=== PATIENT | female | born 1970 | race Caucasian/White ===

== ENCOUNTER 2021-04-13 13:38 | Outpatient (REF) | payer OTHER, SELFPAY ==
--- NOTE | ~2021-04-13 | US_ITS ---
EXAMINATION: US PELVIS CLINICAL INFORMATION: Postmenopausal bleeding. COMPARISON: None. TECHNIQUE: Ultrasound of the pelvis is performed using both transabdominal and transvaginal transducers along with Doppler. Transvaginal imaging is performed due to inadequate visualization transabdominally. FINDINGS: Limited exam due to body habitus. Uterus: The uterus is anteverted and measures 7.8 cm in length, 3.7 seen AP and 5.9 cm in transverse dimension. Uterus is homogeneous in echotexture without focal lesion seen. The double wall endometrial thickness is 0.7 mm. The uterus is smooth in contour and has normal myometrial echogenicity. No visible fibroid. Adnexa: Right ovary measures 30.7 x 2.6 x 2.2 cm. There are small calcifications in the right ovary. Left ovary is not visualized. There is no free fluid in the cul-de-sac. US/US pelvic and transvaginal IMPRESSION: Unremarkable uterus except for thickened endometrium measuring 0.72 cm. Right ovary is unremarkable except for small calcifications seen. The left ovary is not seen.
== END 2021-04-13 13:39 | disposition home or self-care (01) ==
LOC: HO.HMGCX 13:38
PROVIDERS: PCP Internal Medicine; Visit Provider Advanced Practice Midwife
DX: N95.0 Postmenopausal bleeding (principal)
CPT/HCPCS: 76830; 76856

== ENCOUNTER 2021-05-02 14:47 | Outpatient (REF) | payer OTHER, SELFPAY ==
--- NOTE | ~2021-05-02 | MR_ITS ---
EXAMINATION: MR BREAST WITHOUT AND WITH CONTRAST, BILATERAL CLINICAL INFORMATION: 51-year-old for high-risk screening mother and grandmother with breast cancer. Lifetime risk greater than 30%. COMPARISON: Correlation to mammogram of 03/23/2020 TECHNIQUE: Imaging was performed with a dedicated breast coil. Prior to the administration of contrast, bilateral axial T1 and bilateral axial T2 weighted sequences were obtained. After the uneventful administration of?10 mL of Gadavist, dynamic contrast-enhanced VIBRANT series through the breasts in the axial plane were performed. Subtracted images were performed and reviewed. A delayed sagittal sequence through both breasts was acquired. Additionally, CAD post-processing, including maximum intensity projections, 3-D reconstructions and kinetic analysis, were performed an independent workstation and reviewed by the interpreting radiologist is a portion of this exam. FINDINGS: The patient's fibroglandular tissue demonstrates minimal background enhancement. There is mild artifact due to the size of the patient's breasts and position within the breast coil. This is most pronounced in the anterior aspect of the breast. LEFT BREAST: No suspicious masslike or non-masslike enhancement. No abnormal skin thickening or nipple retraction. No abnormal architectural distortion. Review of the T2 weighted images demonstrates no fibrocystic changes or dilated ducts. Review of kinetic images reveals no additional findings. RIGHT BREAST: No suspicious masslike or non-masslike enhancement. No abnormal skin thickening or nipple retraction. No abnormal architectural distortion. Review of the T2 weighted images demonstrates no fibrocystic changes or dilated ducts. Review of kinetic images reveals no additional findings. There is no suspicious internal mammary chain or axillary adenopathy. Limited views of the chest and abdomen are unremarkable. MR/MR breast BI wo/w con IMPRESSION: No MR specific evidence of malignancy. ASSESSMENT: LEFT BREAST: BI-RADS 1-Negative RIGHT BREAST: BI-RADS 1-Negative RECOMMENDATIONS: Routine mammographic imaging as per most recent study and MRI as per high-risk protocol.
== END 2021-05-02 14:48 | disposition home or self-care (01) ==
LOC: HO.MRI 14:47
PROVIDERS: Visit Provider Advanced Practice Midwife
DX: Z13.89 Encounter for screening for other disorder (principal)
CPT/HCPCS: 77049; A9585

== ENCOUNTER → 2021-05-12 08:14 | Outpatient (BNVA) | payer OTHER, SELFPAY | PROVIDERS: PCP Internal Medicine; Visit Provider Obstetrics & Gynecology | DX: N95.0 Postmenopausal bleeding (principal); Z91.89 Other specified personal risk factors, not elsewhere classified | CPT/HCPCS: 99202 ==

== ENCOUNTER 2021-06-03 10:14 | Day surgery (SDC) | payer OTHER, SELFPAY ==
[2021-05-27 13:43] VITALS: BMI 38.4
--- NOTE | 2021-06-03 11:15 | MHC.SHP ---
Pre-Procedural Eval Section A Date of Service: 06/03/21 The patient is an INPATIENT: No Changes since office visit: No Cold of Flu in the past 2 weeks, No New Medical Problems, No Changes in Medication and No Patient answered all questions The History & Physical has been completed within 30 days and I have reviewed it.: Yes Section B Chief Complaint: PMB Allergies: Allergies Allergy/AdvReac Type Severity Reaction Status Date / Time Sulfa (Sulfonamide Allergy Intermediate vomiting/high Verified 05/27/21 11:51 Antibiotics) fever [SULFA (SULFONAMIDE ANTIBIOTICS)] Plan Diagnosis/Plan: Unchanged I have reviewed the history and physical and performed a pertinent physical examination on my patient. No changes have occurred unless specified.
[2021-06-03 11:19] VITALS: BP 107/62; PULSE 64; RESP 16; TEMP 36.6; O2SAT 98
[2021-06-03] MEDS: Lactated Ringers 1,000 ML 100 ML IVCONT (11:29)
--- NOTE | 2021-06-03 12:05 | HO.ANESPROP2 ---
HPI - Anesthesia Eval Consult details Narrative: 51yo female patient for D&C, Hysteroscopy, possible polypectomy, possible myomectomy PMFSH Active Problems Active Problems: All Active Problems (Updated 05/27/21 @ 11:50 by Stephany Peng RN) Postmenopausal bleeding (Acute) At high risk for breast cancer (Acute) Screening for colon cancer (Acute) Increased BMI Patient refuses blood and signed document to that effect but is willing to accept blood if life- threatening Past Medical History Medical History Anxiety Depression Fibromyalgia GERD (gastroesophageal reflux disease) Migraine Smoker Family History Family history of problems with anesthesia: No Surgical History Surgical History (Updated 06/03/21 @ 12:34 by Faith Rhoades MD) History of History of cataract surgery History of esophagogastroduodenoscopy (EGD) Hx of tubal ligation History of Problems with Anesthesia: Yes (Failed epidural, spinal headache. Told had 'high tolerance' during cataract surgery ) Social History Social History (Updated 06/03/21 @ 12:37 by Faith Rhoades MD) Patient Tobacco Use Status: Current everyday Tobacco user Tobacco use type: Cigarette Cigarette Packs Per Day: 0.75 Cigarettes Per Day: 15.0 Years Smoked: 20 Substance Use Type: Marijuana Last Used Substance: Hours (ago) Last Used Substance Other:: Yesterday Advance Directives Information Provided: Yes (informational brochure mailed) Advance Directives on File: No Meds Allergies Allergy/AdvReac Type Severity Reaction Status Date / Time Sulfa (Sulfonamide Allergy Intermediate vomiting/high Verified 05/27/21 11:51 Antibiotics) fever [SULFA (SULFONAMIDE ANTIBIOTICS)] Home Medications Medication Instructions Recorded Confirmed Last Taken Type albuterol sulfate 90 mcg/actuation 2 puff INHALATION Q6H PRN 05/12/21 Unknown History aerosol inhaler (Ventolin HFA) clonazepam 0.5 mg tablet 0.25 mg PO BEDTIME 05/12/21 Unknown History diclofenac sodium 1 % topical gel 2 g TOPICAL QID 05/12/21 Unknown History estradiol 0.05 mg-norethindrone 1 patch TRANSDERMAL 2XW 05/12/21 Unknown History 0.14 mg/24 hr semiwkly transderm patch (CombiPatch) fluticasone propionate 44 1 puff INHALATION BID 05/12/21 Unknown History mcg/actuation HFA aerosol inhaler (Flovent HFA) fluticasone propionate 50 1 spray INTRANASAL DAILY 05/12/21 Unknown History mcg/actuation nasal spray,suspension fremanezumab-vfrm 225 mg/1.5 mL 675 mg SUBCUT [id number] 05/12/21 Unknown History subcutaneous auto-injector (Ajovy) omeprazole 20 mg capsule,delayed 20 mg PO DAILY 05/12/21 Unknown History release prazosin 5 mg capsule 5 mg PO BEDTIME 05/12/21 Unknown History propranolol 120 mg capsule,24 120 mg PO BEDTIME 05/12/21 Unknown History hr,extended release topiramate 100 mg tablet (Topamax) 100 mg PO DAILY 05/12/21 06/03/21 History Exam Exam Date and Time: June 03, 2021 120 Height,Weight and Vital Signs: Height 5 ft 7 in Weight 111.316 kg Last Vital Signs Temp 97.9 F 06/03/21 11:19 Pulse 64 06/03/21 11:19 Resp 16 06/03/21 11:19 BP 107/62 06/03/21 11:19 Pulse Ox 98 06/03/21 11:19 Airway Mallampati Class: II TM Dist: >3cm Neck ROM: Full Loose/Missing/Broken Teeth: Yes (Missing, chipped back) Heart: RRR Lungs: CTAB Assessment and Plan Assessment Anesthesia Assessment: Anesthesia Plan Discussed and Chart Reviewed Final Anesthetic Review Family History of Problems with Anesthesia: No History of Problems with Anesthesia: Yes (Failed epidural, spinal headache. Told had 'high tolerance' during cataract surgery ) NPO: Yes ASA Class: II Final Preanesthetic Review: No Changes in Pt Med Stat, Meds/Allgs Chart Reviewed, Consent Obtained/Reviewed and Anes Risks/Benef Reviewed Patient Risk: Intermediate Procedure Risk: Low Assessment/Block/Sedation in SS: Assess/Block/Sedation-SS Anesthetic Plan Anesthetic Plan: GA Disposition: Standard PACU
--- NOTE | 2021-06-03 12:27 | PC.NURSE ---
patient states she will take blood products if it was to save her life. life or situation witnesse by another rn annetta lu. signed on blood refusal consent as well.
--- NOTE | 2021-06-03 12:56 | PM.OP ---
Brief Operative Note Date of Service: 06/03/21 Pre-op diagnosis: Postmenopausal bleeding Post-op diagnosis: same (Normal uterine cavity /endocervical canal) Procedure: Hysteroscopy D&C, Polypectomy Surgeon: Stanley Lyman MD Anesthesia: MAC Was an Abrasive Coating Machine Operator used for this Procedure?: No Estimated blood loss (mL): 0 Pathology: other (Endometrial Scrapping) Condition: stable Disposition: PACU
--- NOTE | 2021-06-03 12:57 | P.OP_ITS ---
Operative Note Operative Note Date of Service: 06/03/21 Narrative: Preop Diagnosis: Post Menopausal bleeding Operation: Diagnostic Hysteroscopy, Dilataion & Curettage Post Op Diagnosis: Normal endometrial cavity QBL: Minimal Anesthesia: MAC Surgeon: Stanley Lyman MD Delinquent Tax Collection Assistant: None Complication: None Pathology: Endometrial Scrapings Procedure: The patient was put in the dorsal lithotomy position, scrubbed, and draped in the usual manner. A sterile speculum was inserted in the patient's vagina. The anterior lip of the cervix was grasped with a single tooth tenaculum. The cervix was dilated up to 5 mm, then the scope was inserted in the patient's uterus. Inspection revealed Normal endometrial cavity. The Myosure Reach device was used; . At the end of the procedure, all instruments were taken out of the patient uterine and vaginal cavity. The single tooth tenaculum was removed and homeostasis was assured using pressure,. The patient tolerated the procedure well and was transferred to the PACU in a stable condition.
[2021-06-03 13:05] VITALS: BP 101/56; PULSE 72; RESP 16; TEMP 36.4; O2SAT 99
[2021-06-03 13:10] VITALS: BP 104/73; PULSE 68; RESP 18; O2SAT 97
[2021-06-03 13:15] VITALS: BP 111/54; PULSE 65; RESP 18; O2SAT 98
[2021-06-03 13:20] VITALS: BP 104/49; PULSE 77; RESP 18; O2SAT 98
[2021-06-03] MEDS: Acetaminophen 325 MG TABLET 975 MG PO (13:20)
[2021-06-03] MEDS: oxyCODONE HCl Immed Release 5 MG TABLET PO (13:29)
[2021-06-03 13:35] VITALS: BP 117/79; PULSE 67; RESP 18; TEMP 36.4; O2SAT 99
== END 2021-06-03 14:13 | disposition home or self-care (01) ==
PROVIDERS: PCP Internal Medicine; Visit Provider Obstetrics & Gynecology
PROC: 0UDB8ZZ Extraction of Endometrium, Via Natural or Artificial Opening Endoscopic (ICD-10-PCS; CPT 58558; principal; 2021-06-03 11:40)
DX: N95.0 Postmenopausal bleeding (principal); Z91.89 Other specified personal risk factors, not elsewhere classified; F41.8 Other specified anxiety disorders; M79.7 Fibromyalgia; G43.909 Migraine, unspecified, not intractable, without status migrainosus; Z79.899 Other long term (current) drug therapy; Z88.2 Allergy status to sulfonamides; Z98.51 Tubal ligation status; F17.210 Nicotine dependence, cigarettes, uncomplicated
CPT/HCPCS: 58558; 88305; J1100; J2250; J2405; J3010

== ENCOUNTER 2021-06-21 | Outpatient (REF) | payer OTHER, SELFPAY | END 2021-06-21 00:01 | LOC: CF | PROVIDERS: PCP Internal Medicine; Visit Provider Obstetrics & Gynecology | DX: N95.0 Postmenopausal bleeding (principal); R23.2 Flushing | CPT/HCPCS: 99212 ==

== ENCOUNTER 2021-07-26 12:10 | Emergency (ER) | payer OTHER, SELFPAY ==
--- NOTE | ~2021-07-26 | CT_ITS ---
EXAMINATION: CT ABDOMEN AND PELVIS WITHOUT CONTRAST CLINICAL INFORMATION: Bilateral hip pain. COMPARISON: MR abdomen dated from 09/06/[address] abdomen/pelvis dated from 08/28/2017. TECHNIQUE: Multidetector volumetric imaging was performed from the superior aspect of the liver through the pubic symphysis. Sagittal and coronal reformatted images were obtained on the technologist's workstation. This CT examination was performed using dose optimization techniques as appropriate, variously including the following: *Automated exposure control *Adjustment of mA and/or kV according to patient size (this includes techniques or standardized protocols for targeted exams where dose is matched to indication/reason for exam; i.e. extremities or head) *Use of iterative reconstruction technique DLP: 1057 mGy-cm FINDINGS: LUNG BASES: Limited evaluation due to respiratory motion. No focal consolidation or pleural effusion. LIVER, GALLBLADDER, AND BILIARY TREE: Redemonstration of subtle nodularity of the hepatic borders and questionable enlargement of the caudate lobe, raising the possibility of underlying hepatocellular disease. Otherwise, the noncontrast liver is normal in size without focal abnormalities. Hydropic gallbladder without evidence of stones, wall thickening nor pericholecystic inflammatory changes. No biliary ductal dilatation. PANCREAS: Fatty infiltration. No focal abnormalities. The main pancreatic duct is nondilated. SPLEEN: Unremarkable. ADRENAL GLANDS: Unremarkable. KIDNEYS AND URETERS: The kidneys are normal in size, shape, and attenuation. No hydronephrosis, hydroureter, or calculi seen. No perinephric stranding. BLADDER: Unremarkable. GASTROINTESTINAL TRACT: The stomach and the small bowel are nondilated. Normal appendix. No pericolic inflammatory changes or evidence of bowel obstruction. ABDOMINAL WALL: No significant hernia is appreciated. LYMPH NODES: Prominent periportal lymph nodes are stable since 2018. No lymphadenopathy by size criteria. VASCULAR: Unremarkable. PELVIC VISCERA: Unremarkable. OSSEOUS STRUCTURES: Stable compression deformity at L1 since 2018. New compression deformity at L5 and T9. No pelvic fractures. CT/CT abdomen pelvis wo con IMPRESSION: 1. New compression deformities at T9 and L5 since 2018. Correlate for pain/tenderness and history of trauma. 2. Redemonstration of subtle nodularity of the liver contour and questionable enlargement of the caudate lobe, raising the possibility of hepatocellular disease.
--- NOTE | ~2021-07-26 | MR_ITS ---
EXAMINATION: MR LUMBAR SPINE WITHOUT CONTRAST CLINICAL INFORMATION: Spinal fracture. Potential cauda equina syndrome. COMPARISON: CT abdomen and pelvis from 07/26/2021. TECHNIQUE: MRI of the lumbar spine was obtained using routine sequences without contrast. FINDINGS: Minimal degenerative anterolisthesis of T12 on L1. Minimal degenerative stepwise retrolistheses of L1-L3. Compression deformities of the L1 and L5 vertebral bodies. There is 55% loss of L1 vertebral body height without residual marrow edema. There is a fracture line beneath the superior endplate of L5 with 25% loss of body height and residual marrow edema. No significant retropulsion posterior body stern. No additional suspicious marrow edema. The remaining vertebral body heights are maintained. Moderate degenerative disease from T11-L3. Mild degenerative disc disease from L3-S1. The conus medullaris terminates at the level of L1-L2. The distal spinal cord is normal in appearance. No significant abnormalities of the paraspinal musculature. Limited evaluation of the intra-abdominal structures without significant abnormalities. The abdominal aorta is of normal contour and caliber. AXIAL SPINAL LEVELS: L1-L2: Mild diffuse disc bulge. There is mild bilateral facet joint arthropathy. There is mild left and no right neural foraminal stenosis. There is no spinal canal stenosis. L2-L3: Mild diffuse disc bulge with superimposed left foraminal disc protrusion. There is mild bilateral facet joint arthropathy. There is mild left and no right neural foraminal stenosis. There is no spinal canal stenosis. L3-L4: Mild diffuse disc bulge with superimposed left foraminal disc protrusion. There is mild bilateral facet joint arthropathy. There is no neural foraminal stenosis. There is no spinal canal stenosis. L4-L5: Mild diffuse disc bulge. There is moderate bilateral facet joint arthropathy. There is mild bilateral neural foraminal stenosis. There is no spinal canal stenosis. L5-S1: Mild diffuse disc bulge. There is mild bilateral facet joint arthropathy. There is mild bilateral neural foraminal stenosis. There is mild narrowing of the subarticular zones with no overt spinal canal stenosis centrally. MR/MR lumbar spine wo con IMPRESSION: 1. Compression fracture of the superior endplate of L5 with residual marrow edema. No significant retropulsion of the posterior body wall. 2. Chronic anterior wedge deformity of L1 without residual marrow edema. 3. Otherwise, moderate multilevel degenerative spondyloarthropathy of the lumbar spine as described in detail above. No overt spinal canal stenosis or nerve root compression..
[2021-07-26 12:23] VITALS: BP 110/69; PULSE 89; RESP 18; TEMP 36.7; O2SAT 98; BMI 35.0
[2021-07-26 16:16] VITALS: BP 98/63; PULSE 73; RESP 20; TEMP 37; O2SAT 97
[2021-07-26] MEDS: oxyCODONE HCl Immed Release 5 MG TABLET PO ×2 (17:03→23:20)
--- NOTE | 2021-07-26 19:10 | ED_ITS ---
HPI - Fall General Chief Complaint: Fall Stated Complaint: xray Time Seen by Provider: 07/26/21 15:16 Source: patient Mode of arrival: ambulatory Limitations: no limitations History of Present Illness HPI Narrative: 51 yold female wtih with pmh of spine injuries in the past presents to the ED for worsening back pain. patient state she fell unto her buttocks while tyring to catch her 260 pound son. Patient states when she fell unto her buttock she heard a crack into her back. patient states since than she has worsening back pain and having diffictuly walking. She states suing now more walker with chair instead of her cane. patient states difficulty urinarting since fall. patient denies hitting head or loss of conscisouness, Related Data Home Medications Medication Instructions Recorded Confirmed albuterol sulfate 90 2 puff INHALATION Q6H PRN 05/12/21 mcg/actuation aerosol inhaler (Ventolin HFA) clonazepam 0.5 mg tablet 0.25 mg PO BEDTIME 05/12/21 diclofenac sodium 1 % topical 2 g TOPICAL QID 05/12/21 gel fluticasone propionate 44 1 puff INHALATION BID 05/12/21 mcg/actuation HFA aerosol inhaler (Flovent HFA) fluticasone propionate 50 1 spray INTRANASAL DAILY 05/12/21 mcg/actuation nasal spray,suspension fremanezumab-vfrm 225 mg/1.5 675 mg SUBCUT [id number] 05/12/21 mL subcutaneous auto-injector (Ajovy) omeprazole 20 mg 20 mg PO DAILY 05/12/21 capsule,delayed release prazosin 5 mg capsule 5 mg PO BEDTIME 05/12/21 propranolol 120 mg capsule,24 120 mg PO BEDTIME 05/12/21 hr,extended release topiramate 100 mg tablet 100 mg PO DAILY 05/12/21 (Topamax) Previous Rx's Medication Instructions Recorded paroxetine mesylate(menop.sym) 7.5 7.5 mg PO BEDTIME 30 Days #30 cap 06/16/21 mg capsule Allergies Allergy/AdvReac Type Severity Reaction Status Date / Time Sulfa Allergy Intermediate vomiting/high Verified 07/26/21 12:23 (Sulfonamide Antibiotics) fever [SULFA (SULFONAMIDE ANTIBIOTICS)] Review of Systems Verdana 4l Review of Systems: Verdana 4d Back pain Verdana 4d Yes Verdana 4d all other systems are reviewed and are negative Verdana 4l Neurologic: Verdana 4d Reports Abnormal speech present [facility] Past Medical History Medical History Anxiety Depression Fibromyalgia GERD (gastroesophageal reflux disease) Migraine Smoker Surgical History History of History of cataract surgery History of esophagogastroduodenoscopy (EGD) Hx of tubal ligation Social History Social History Patient Tobacco Use Status: Current everyday Tobacco user Tobacco use type: Cigarette Cigarette Packs Per Day: 0.75 Cigarettes Per Day: 15.0 Years Smoked: 20 Substance Use Type: Marijuana Advance Directives: No Advance Directives Information Provided: No Physical Exam Verdana 4l Vital Signs: Verdana 4d Verdana 4d Vital Signs: Verdana 4d Verdana 4Bd Last Vital Signs Verdana 4d Knobber New 4d Knobber New 4d Temp 98.6 F 07/26/21 16:16 Knobber New 4d Pulse 73 07/26/21 16:16 Knobber New 4d Resp 20 07/26/21 16:16 BP 98/63 07/26/21 16:16 Pulse Ox 97 07/26/21 16:16 BMI result Body Mass Index 35.0 Const: General: cooperative, healthy appearing, comfortable, no acute distress, well developed, alert, awake and Physically active Orientation/consciousness: oriented to person, oriented to place and oriented to time HENMT: Head: Yes normal to inspection, Yes No palpable skull fracture present, Yes normocephalic and Yes atraumatic Eyes: General: appearance normal, both eyes and all related structures Pupils: Equal, round and reactive pupils present Neck: Neck: Yes normal visual inspection, Yes full ROM, Yes no lymphadenopathy, Yes no meningeal signs, Yes trachea midline, Yes supple, No anterior neck swelling and No tender Chest: Chest palpation & inspection: normal inspection of the chest and normal palpation of entire chest wall Resp: Effort & Inspection: normal respiratory effort and able to speak in complete sentences Auscultation: clear to auscultation bilaterally Cardio: Jugular venous distension: no JVD Heart sounds: S1 normal heart sound present and S2 normal heart sound present GI: Other: Patient has good anal rectal tone on rectal exam. Patient has sensation in perinuem and saddle area. negative for saddle anethesia. Inspection: Yes normal to inspection Palpation (GI): not firm, nontender, no guarding and not rigid : General: Yes CVA tenderness and Yes no CVA tenderness Back/Spine/Pelvis: Back: no CVA tenderness, CVA tenderness and back tenderness (thoracic and lumbar spine tenderness) Skin: General skin exam: no rashes or lesions noted and elasticity normal Neuro: General: oriented to person, oriented to place, oriented to time, tone normal, moves all extremities, Normal light touch and pain sensation, no meningeal signs, no focal motor deficits, CN's II-XI intact bilaterally, normal sensation to monofilament and deep tendon reflexes 2+ bilaterally Cranial nerves: Yes CN's II-XII intact bilaterally, Yes Facial sensation intact/muscles of mastication intact, Yes Intact sense of smell present, Yes Equal, round and reactive pupils present, Yes Bilaterally intact EOM present and Yes Nystagmus not present Cognition (Neuro): normal cognition Speech: Abnormal speech present Motor exam (neuro): 5/5 motor strength present throughout Sensory Exam: Normal double simultaneous stimulation for sensation Extrem: Other: positive for bilateral hip tenderness. negative for ecchymosis. biateral lower extremities motor, neuro, and vascular exam is tinact. General: Yes normal to inspection and Yes full ROM Psych: Appearance: grossly normal, well kempt and not disheveled Course Course Course Narrative: Patient sent for CT Abdomen/eplvis and lumbar spine xray. Reevaluation(s) Reevaluation #1: CT scan shows T9 and L6 spine fracture. Awaiting MRI results. given pain meds. Sign out to KINDRA BORDEN for follow up of MRI and possible case management. Before Urinating bladder scan was 531 and postvoid was 154. Time: 19:24 MDM - Fall MDM Narrative Medical decision making narrative: L5and T9 fracture Discharge Plan Discharge Clinical Impression: Fx lumbar vertebra-closed, Fracture of thoracic vertebra Patient Disposition: Still a Patient Prescriptions: No Action topiramate [Topamax] 100 mg tablet 100 mg PO DAILY 0RF diclofenac sodium 1 % gel 2 g topical QID 0RF Rx Instructions: apply to single elbow, wrist or hand; for hand includes palm/fingers/back of hand Flovent HFA 44 mcg/actuation HFA aerosol inhaler 1 puff inhalation BID 0RF Rx Instructions: administer with spacer albuterol sulfate [Ventolin HFA] 90 mcg/actuation HFA aerosol inhaler 2 puff inhalation Q6H PRN0RF fluticasone propionate 50 mcg/actuation spray,suspension 1 spray intranasal DAILY 0RF Rx Instructions: administer into each nostril prazosin 5 mg capsule 5 mg PO BEDTIME 0RF omeprazole 20 mg capsule,delayed release(DR/EC) 20 mg PO DAILY 0RF clonazepam 0.5 mg tablet 0.25 mg PO BEDTIME 0RF Rx Instructions: administer 30 minutes before bedtime propranolol 120 mg capsule,extended release 24 hr 120 mg PO BEDTIME 0RF Ajovy Autoinjector 225 mg/1.5 mL auto-injector 675 mg subcut [id number] 0RF Rx Instructions: administer as 3 consecutive 225 mg injections paroxetine mesylate(menop.sym) 7.5 mg capsule 7.5 mg PO BEDTIME 30 Days Qty: 30 0RF
[2021-07-26 20:13] VITALS: BP 110/67; PULSE 71; RESP 16; TEMP 36.8; O2SAT 98
[2021-07-26 20:50] LABS: COVID-19 Test Negative (Negative)
[2021-07-26] MEDS: SUMAtriptan succinate 100 MG TABLET PO (22:25)
[2021-07-26 23:16] VITALS: BP 111/62; PULSE 66; RESP 14; TEMP 36.4; O2SAT 98
[2021-07-26] MEDS: Cyclobenzaprine HCl 5 MG TABLET PO (23:20)
[2021-07-26] MEDS: Acetaminophen 325 MG TABLET 650 MG PO (23:20)
[2021-07-27] VITALS (8 sets, daily range): BP systolic 103–121; BP diastolic 52–69; PULSE 66–81; RESP 16–18; TEMP 36.8; O2SAT 96–98
--- NOTE | 2021-07-27 00:09 | PC.NURSE ---
Tech put commode next to bed. Pt transferred to commode with minimal assist. Pt reports excruciating pain upon transfer. Pt able to transfer back to bed without assist.
[2021-07-27] MEDS: Cyclobenzaprine HCl 10 MG TABLET PO (08:33)
[2021-07-27] MEDS: oxyCODONE HCl Immed Release 5 MG TABLET PO (08:34)
--- NOTE | 2021-07-27 08:47 | PHA.MEDREC ---
Pharmacy Consult ? Medication Reconciliation Pharmacy has completed the medication reconciliation. Patient reports insurance issues for the Clonazepam. She is suppose to get 1 mg TID however the provider wrote the script different to get it passed through insurance. Without clonazepam she reportably get tremors from the anxiety. She uses her adderal PRN when she need to focus. Reports she was previously on tramadol, while it did not work well it was better than nothing. Also reports while in [place] she was prescribed morphine for her back pain. Jess Shields, BharatD
--- NOTE | 2021-07-27 11:59 | MHC.CARE ---
CARE Team meets with pt.? Pt has a hx of anxiety and agoraphobia.? She endorses elevated anxiety, stating that she has not yet received her morning medication.? Pt denies AVH, HI, SI, and self-harm urges.? Pt does not appear to be at risk.
--- NOTE | 2021-07-27 12:56 | MHC.CM.ED ---
Patient came to the ER after a fall. Work up showed lumbar compression fracture. Physical therapy eval completed. Short term rehab is recommended. Met with patient in regards to discharge planning. 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 Patient received 2 Moderna vaccines. PCP verified. List of facilities that are contracted with patient's insurance provided from [facility]. Patient is requesting a private room. Patient agreeable to referral being broadcasted. Referral broadcasted. [facility] is able to offer a private room. This is only facility that has a private room to offer. Patient accepts bed. [facility] is in the process of obtaining insurance auth. Continue to monitor for d/c needs.
[2021-07-27] MEDS: Acetaminophen 325 MG TABLET 650 MG PO (12:59)
[2021-07-27] MEDS: Omeprazole 20 MG CAPSULE.DR PO (12:59)
[2021-07-27] MEDS: Topiramate 100 MG TABLET 200 MG PO (12:59)
[2021-07-27] MEDS: Propranolol HCL LA 60 MG CAP.SA.24H 120 MG PO (13:00)
[2021-07-27] MEDS: clonazePAM 1 MG TABLET PO (13:00)
[2021-07-27] MEDS: Fluticasone Propionate Nasal 16 GM SPRAY 1 SPRAY NOSTRIL-B (13:00)
[2021-07-27] MEDS: Cholecalciferol (Vitamin D3) 25 MCG TABLET 125 MCG PO (13:00)
--- NOTE | 2021-07-27 13:03 | PC.NURSE ---
Addendum entered by Amber Marcano RN 07/27/21 13:05: also bringing paroxetine. Original Note: medicated per provider order, pt will have someone bring in flovent and diclofenac.
--- NOTE | 2021-07-27 13:17 | PC.NURSE ---
patient to contact family to bring in non-formulary medications
--- NOTE | 2021-07-27 15:12 | PC.NURSE ---
patient a&ox3, pt states she still has pain and at times muscle relaxers help them, pt is aware that an ambulace will be transporting her to a facility at 530 thisafternoon. call aviles within reach, will continue to monitor.
--- NOTE | 2021-07-27 15:26 | PC.NURSE ---
Spoke w [facility] at [facility], went over pt info, no other questions.
--- NOTE | 2021-07-27 15:55 | PC.NURSE ---
pt a&ox3, resting comfortably, still reporting 9/10 pain, bp slightly low, all other vss. tech helped patient gather belongings to prepare for discharge.
== END 2021-07-27 17:55 | disposition skilled nursing facility (03) ==
PROVIDERS: Physician Assistant; Emergency Provider Emergency Medicine; PCP Internal Medicine
DX: S22.070A Wedge compression fracture of T9-T10 vertebra, initial encounter for closed fracture (principal); S32.050A Wedge compression fracture of fifth lumbar vertebra, initial encounter for closed fracture; W18.30XA Fall on same level, unspecified, initial encounter; Z91.81 History of falling; Y93.89 Activity, other specified; Y92.039 Unspecified place in apartment as the place of occurrence of the external cause; Y99.9 Unspecified external cause status; F17.200 Nicotine dependence, unspecified, uncomplicated; F12.90 Cannabis use, unspecified, uncomplicated; Z20.822 Contact with and (suspected) exposure to COVID-19
CPT/HCPCS: 51798; 72148; 74176; 87635; 97162; 99284; 99285

== ENCOUNTER 2021-09-20 16:45 | Outpatient (REF) | payer OTHER, SELFPAY ==
--- NOTE | ~2021-09-20 | MR_ITS ---
MR BRAIN WITHOUT AND WITH CONTRAST CLINICAL INFORMATION: Abnormal sense of smell. COMPARISON: None available. TECHNIQUE: Multiplanar, multisequence MRI of the brain was obtained before and after the intravenous administration of 10 mL of Gadavist. FINDINGS: There is no pathologic intracranial enhancement. No parenchymal signal abnormality. There is no hydrocephalus, extra-axial surface collection, or herniation. The major flow voids at the skull base are preserved. There is no acute infarct on diffusion-weighted imaging. There is no intracranial hemorrhage on the gradient recalled echo acquisition. The midline structures are normal. The cerebellar tonsils are normally positioned. The cerebellum and brainstem are normal. The craniocervical junction is normal. Osseous marrow signal intensity is homogenous. The visualized soft tissues are unremarkable. Complete opacification of the right maxillary sinus, near complete opacification of the right ethmoid air cells, and complete opacification of the right frontal sinus in keeping with right ostiomeatal unit obstructive pattern sinus disease. Small fluid level within the left maxillary sinus, large fluid levels within the sphenoid sinuses bilaterally, and significant opacification left ethmoid air cells. Mild mucosal thickening within the left frontal sinus. MR/MR head/brain wo/w con IMPRESSION: - There is right ostiomeatal unit obstructive pattern since sinus disease with complete opacification of the right maxillary sinus, the right anterior ethmoid air cells, and the right frontal sinus. There are also large fluid levels within the sphenoid sinuses bilaterally and a small fluid level within the left maxillary sinus that should be correlated for clinical signs of acute sinusitis. Significant opacification of the left ethmoid air cells. There is some restricted diffusion within the right maxillary sinus and the right frontal sinus that could reflect inspissated secretions versus infected material that can be clinically correlated. Maxillofacial CT and ENT consultation advised. - There are no acute intracranial findings. No pathologic enhancement intracranially.
== END 2021-09-20 16:46 | disposition home or self-care (01) ==
LOC: HO.MRI 16:45
PROVIDERS: PCP Internal Medicine; Visit Provider Internal Medicine
DX: R43.1 Parosmia (principal)
CPT/HCPCS: 70553; A9585

== ENCOUNTER → 2021-10-04 14:12 | Outpatient (BNVA) | payer OTHER, SELFPAY | PROVIDERS: Visit Provider Obstetrics & Gynecology | DX: R23.2 Flushing (principal) | CPT/HCPCS: Q3014 ==

== ENCOUNTER 2021-11-02 13:28 | Outpatient (REF) | payer OTHER, SELFPAY ==
--- NOTE | ~2021-11-02 | CT_ITS ---
EXAMINATION: CT SINUS WITHOUT CONTRAST CLINICAL INFORMATION: Acute recurrent maxillary sinusitis. COMPARISON: None. TECHNIQUE: Axial 1.5 mm thin and reformatted 1.5 mm thin sagittal and coronal images of the sinuses were obtained without contrast. This CT examination was performed using dose optimization techniques as appropriate, variously including the following: *Automated exposure control *Adjustment of mA and/or kV according to patient size (this includes techniques or standardized protocols for targeted exams where dose is matched to indication/reason for exam; i.e. extremities or head) *Use of iterative reconstruction technique DLP: 145 mGy-cm. FINDINGS: There is complete opacification of right maxillary and partial opacification left maxillary, ethmoid, sphenoid and maxillary sinuses. There is complete obstruction of bilateral frontoethmoidal and ostiomeatal complexes from mucoperiosteal thickening. The bony sinus stern are intact. NASAL CAVITY/NASOPHARYNX: There is mild deviation of the nasal septum to the right without a bony spur. There is mild hypertrophic changes of left inferior and middle turbinates. The right nasal cavity airway is patent. There is mild narrowing of the left nasal cavity. The nasopharynx is symmetric. ADDITIONAL RELEVANT FINDINGS: No periapical disease is seen. The TMJs articulate normally. The orbits and skull base soft tissues are unremarkable. The middle ear cavities and mastoid air cells are clear. Limited evaluation demonstrates no acute intracranial findings. CT/CT sinus wo con IMPRESSION: Chronic pansinusitis. Obstructed bilateral ostiomeatal complexes and frontoethmoidal recesses.
== END 2021-11-02 13:29 | disposition home or self-care (01) ==
LOC: HO.CT 13:28
PROVIDERS: PCP Internal Medicine; Visit Provider Internal Medicine
DX: J01.01 Acute recurrent maxillary sinusitis (principal)
CPT/HCPCS: 70486

== ENCOUNTER 2021-12-06 09:48 | Outpatient (REF) | payer OTHER, SELFPAY ==
[2021-12-13 02:13] LABS: HPV mRNA E6/E7 rflx Not Detected (Not Detected)
== END 2021-12-06 09:49 | disposition home or self-care (01) ==
LOC: HO.LAB 09:48
PROVIDERS: Visit Provider Obstetrics & Gynecology
DX: Z01.419 Encounter for gynecological examination (general) (routine) without abnormal findings (principal)
CPT/HCPCS: 87624; 88142

== ENCOUNTER → 2021-12-27 12:04 | Outpatient (BNVA) | payer OTHER, SELFPAY | PROVIDERS: PCP Family Medicine; Visit Provider Physician Assistant | DX: K21.9 Gastro-esophageal reflux disease without esophagitis (principal); K58.0 Irritable bowel syndrome with diarrhea; F12.90 Cannabis use, unspecified, uncomplicated; F17.210 Nicotine dependence, cigarettes, uncomplicated; Z79.899 Other long term (current) drug therapy; Z12.11 Encounter for screening for malignant neoplasm of colon | CPT/HCPCS: 99202; 99212 ==

== ENCOUNTER 2022-06-07 14:38 | Outpatient (REF) | payer OTHER, SELFPAY ==
--- NOTE | ~2022-06-07 | MR_ITS ---
EXAMINATION: MR BREAST WITHOUT AND WITH CONTRAST, BILATERAL CLINICAL INFORMATION: 52-year-old for high-risk screening lifetime risk greater than 30% family history mother and grandmother COMPARISON: MRI 05/02/2021 and correlation to mammogram of 03/23/2020 TECHNIQUE: Imaging was performed with a dedicated breast coil. Prior to the administration of contrast, bilateral axial T1 and bilateral axial T2 weighted sequences were obtained. After the uneventful administration of?8 mL of Gadavist, dynamic contrast-enhanced VIBRANT series through the breasts in the axial plane were performed. Subtracted images were performed and reviewed. A delayed sagittal sequence through both breasts was acquired. Additionally, CAD post-processing, including maximum intensity projections, 3-D reconstructions and kinetic analysis, were performed an independent workstation and reviewed by the interpreting radiologist is a portion of this exam. FINDINGS: The patient's fibroglandular tissue demonstrates mild background enhancement. LEFT BREAST: No suspicious masslike or non-masslike enhancement. No abnormal skin thickening or nipple retraction. No abnormal architectural distortion. Review of the T2 weighted images demonstrates no fibrocystic changes or dilated ducts. Review of kinetic images reveals no additional findings. RIGHT BREAST: No suspicious masslike or non-masslike enhancement. No abnormal skin thickening or nipple retraction. No abnormal architectural distortion. Review of the T2 weighted images demonstrates no fibrocystic changes or dilated ducts. Review of kinetic images reveals no additional findings. There is no suspicious internal mammary chain or axillary adenopathy. Limited views of the chest and abdomen are unremarkable. MR/MR breast BI wo/w con IMPRESSION: No MR specific evidence of malignancy. ASSESSMENT: LEFT BREAST: BI-RADS 1-Negative RIGHT BREAST: BI-RADS 1-Negative RECOMMENDATIONS: Routine mammographic imaging as per most recent study and MRI as per high-risk.
== END 2022-06-07 14:39 | disposition home or self-care (01) ==
LOC: HO.MRI 14:38
PROVIDERS: Visit Provider Obstetrics & Gynecology
DX: Z12.39 Encounter for other screening for malignant neoplasm of breast (principal); Z91.89 Other specified personal risk factors, not elsewhere classified
CPT/HCPCS: 77049; A9585

== ENCOUNTER 2022-09-06 11:13 | Outpatient (REF) | payer OTHER, SELFPAY ==
--- NOTE | ~2022-09-06 | US_ITS ---
EXAMINATION: US ABDOMEN COMPLETE CLINICAL INFORMATION: Fatty liver. COMPARISON: CT abdomen and pelvis 07/26/2021. Ultrasound abdomen 05/16/2019. MRI abdomen 09/06/2017. Ultrasound abdomen complete with elastography 08/16/2017. TECHNIQUE: Real-time imaging of the abdominal viscera. FINDINGS: PANCREAS: Normal. ABDOMINAL AORTA: The proximal, mid, and distal segments are normal in caliber. INFERIOR VENA CAVA: Visualized portions are normal. LIVER: The liver was not measured in size but does not appear enlarged. The liver contour is normal. There is diffuse increased liver parenchymal echogenicity, consistent with hepatic steatosis. No focal hepatic lesion. There is no intrahepatic biliary duct dilatation seen. GALLBLADDER: Normal. The gallbladder is physiologically distended without evidence of stones, sludge, polyps, wall thickening or pericholecystic fluid. COMMON BILE DUCT: Normal in caliber measuring 0.5 cm in diameter. RIGHT KIDNEY: No hydronephrosis. No renal calculi or focal parenchymal lesions. The kidney measures 10.8 cm in maximum dimension. LEFT KIDNEY: No hydronephrosis or focal parenchymal lesions. The kidney measures 12.0 cm in maximum dimension. 2 mm calculi are seen in both the mid and lower pole, nonobstructing. SPLEEN: Normal. The spleen measures 10.7 cm in maximum dimension. FREE FLUID: None. US/US abdomen complete IMPRESSION: 1. Hepatic steatosis. 2. Left lower pole nonobstructing calculi.
== END 2022-09-06 11:14 | disposition home or self-care (01) ==
LOC: HO.HMGCX 11:13
PROVIDERS: PCP Hospitalist; Visit Provider Internal Medicine
DX: K76.0 Fatty (change of) liver, not elsewhere classified (principal)
CPT/HCPCS: 76700

== ENCOUNTER → 2022-10-30 16:17 | Outpatient (BNVA) | payer OTHER, SELFPAY | PROVIDERS: PCP Hospitalist; Visit Provider Obstetrics & Gynecology | DX: R23.2 Flushing (principal) | CPT/HCPCS: 99212 ==

== ENCOUNTER 2022-12-14 15:55 | Outpatient (REF) | payer OTHER, SELFPAY ==
--- NOTE | ~2022-12-14 | XR_ITS ---
EXAMINATION: XR SHOULDER, RIGHT XR LUMBAR SPINE CLINICAL INFORMATION: Right shoulder pain, back pain, fall. COMPARISON: MR lumbar spine 07/26/2021 TECHNIQUE: 3 views of the lumbar spine. 4 views of the right shoulder. FINDINGS: RIGHT SHOULDER: No abnormal soft tissue calcifications identified adjacent to the humeral head. Glenohumeral alignment preserved. Moderate degenerative changes acromioclavicular joint with hypertrophic change. LUMBAR SPINE: Slight leftward curvature of the lumbar spine. Facet arthritis in the lower lumbar spine. Redemonstration of compression deformities of the L1 and L5 vertebral bodies. L3, L4 and L5 lumbar vertebral body heights are maintained. Moderate degenerative changes with loss of disc space height and hypertrophic change at L1-L2 and L2-L3. Minimal grade 1 retrolisthesis of L2 on L3. Superior endplate concavity of presumed T11 vertebral body incompletely assessed. XR/XR shoulder RT min 2V IMPRESSION: 1. Moderate degenerative changes right acromioclavicular joint. 2. Redemonstration of compression deformities of the L1 and L5 vertebral bodies. 3. Superior endplate concavity of presumed T11 vertebral body is incompletely assessed. Dedicated images recommended for further evaluation. Additional imaging with CT scan or MRI should be considered for better visualization as these modalities are much more sensitive for detection of fracture or other underlying pathology.
--- NOTE | ~2022-12-14 | XR_ITS ---
EXAMINATION: XR SHOULDER, RIGHT XR LUMBAR SPINE CLINICAL INFORMATION: Right shoulder pain, back pain, fall. COMPARISON: MR lumbar spine 07/26/2021 TECHNIQUE: 3 views of the lumbar spine. 4 views of the right shoulder. FINDINGS: RIGHT SHOULDER: No abnormal soft tissue calcifications identified adjacent to the humeral head. Glenohumeral alignment preserved. Moderate degenerative changes acromioclavicular joint with hypertrophic change. LUMBAR SPINE: Slight leftward curvature of the lumbar spine. Facet arthritis in the lower lumbar spine. Redemonstration of compression deformities of the L1 and L5 vertebral bodies. L3, L4 and L5 lumbar vertebral body heights are maintained. Moderate degenerative changes with loss of disc space height and hypertrophic change at L1-L2 and L2-L3. Minimal grade 1 retrolisthesis of L2 on L3. Superior endplate concavity of presumed T11 vertebral body incompletely assessed. XR/XR lumbar spine 2-3V IMPRESSION: 1. Moderate degenerative changes right acromioclavicular joint. 2. Redemonstration of compression deformities of the L1 and L5 vertebral bodies. 3. Superior endplate concavity of presumed T11 vertebral body is incompletely assessed. Dedicated images recommended for further evaluation. Additional imaging with CT scan or MRI should be considered for better visualization as these modalities are much more sensitive for detection of fracture or other underlying pathology.
== END 2022-12-14 15:56 | disposition home or self-care (01) ==
LOC: HO.XRAY 15:55
PROVIDERS: PCP Internal Medicine; Visit Provider Internal Medicine
DX: M54.50 Low back pain, unspecified (principal); M25.511 Pain in right shoulder
CPT/HCPCS: 72100; 73030

== ENCOUNTER 2023-06-27 10:11 | Outpatient (AMB) | payer OTHER, SELFPAY ==
[2023-06-27 10:21] VITALS: BP 126/74; PULSE 77; RESP 13; O2SAT 96; BMI 30.4
--- NOTE | 2023-06-27 10:21 | MHC.PC.OV ---
Vital Signs 06/27/23 10:21 Height 5 ft 7 in Weight 194 lb 2 oz BMI 30.4 BP 126/74 Blood Pressure Location Lt brachial Position Sitting Respiration 13 Pulse 77 Pulse Source Pulse Oximeter Pulse Oximetry (%) 96 Oxygen Delivery Method Room Air Intake Visit Reasons: Transfer of care, back pain & difficulty walking Intake Note: Patient is here for transfer of care, and she would like check up, she needs her adderall, and sumatriptan, and would like a mobility scooter. Allergies Sulfa (Sulfonamide Antibiotics) [SULFA (SULFONAMIDE ANTIBIOTICS)] Allergy (Intermediate, Verified 06/27/23 10:37) vomiting/high fever Tobacco use date assessed: 06/27/23 Dental Screening Dental Screen Date: 06/27/23 Did you have a dental visit in the last 12 months?: No Did you have a dental problem in the last 6 months where you did not have access to dental care?: Yes Was dental information given to patient?: Yes HPI Transfer of care, back pain & difficulty walking HPI Details Transfer of Care Prior PCP:?SV Last office visit/CPE: 09/2022 Acute issue(s): PMHx:Migraines, Depression/Anxiety, GERD, Hot flashes, Low vitamin D, Back pain, Difficulty concentrating, Cough Variant Asthma, Vit D deficiency. Lupus? Fibromyalgia. Anxiety & Depression. Chronic sinusitis, Aspbergers. SurgHx: FHx: SocHx: PFSH Medical History (Updated 06/27/23 @ 11:35 by Lucho Gabriel) Lupus GERD (gastroesophageal reflux disease) Smoker Fibromyalgia Migraine Depression Anxiety Surgical History History of cataract surgery History of History of esophagogastroduodenoscopy (EGD) Hx of tubal ligation Social History Household Members Other:: adult kids Housing: Apartment Alcohol intake: current Alcohol intake frequency: a few times a month Patient Tobacco Use Status: Former Tobacco user Tobacco use type: Cigarette Years Smoked: 20 Substance Use Type: Marijuana Current occupational status: disabled Questionnaire Thrive Questionnaire Date Thrive assessed: 10/16/22 MOSES-7 AMB Questionnaire MOSES-7 Date MOSES - 7 assessed: 10/16/22 Source: Developed by Drs. Ze Garner, Barbi Jimenez, Donn Brown and colleagues, with an educational abel from [employer]. Review of Systems Const Denies chills, Denies fatigue, Denies fever(s), Denies headache(s) and Denies weakness ENT Denies dizziness and Denies headache(s) Card Denies chest pain, Denies lightheadedness, Denies dyspnea and Denies other (Palpitations) Resp Denies cough, Denies dyspnea, Denies wheezing and Denies other ( shortness of breath) Musc Denies numbness and Denies tingling Neuro Denies dizziness, Denies headache(s), Denies numbness, Denies tingling, Denies paresthesias and Denies weakness Psych Denies anxiety and Denies depression Endo Denies fatigue Aller/Immun Denies wheezing Physical exam (Primary Care) Vital Signs: Last Vital Signs Pulse 77 06/27/23 10:21 Resp 13 06/27/23 10:21 BP 126/74 06/27/23 10:21 Pulse Ox 96 06/27/23 10:21 Oxygen Delivery Method Room Air 06/27/23 10:21 BMI result Body Mass Index 30.4 Tobacco/Smoking Status: Tobacco use Status Tobacco use date assessed 06/27/23 06/27/23 10:41 Patient Tobacco Use Status Former Tobacco user 06/27/23 10:25 Tobacco use type Cigarette 06/27/23 10:25 Thrive Assessment: Date of Thrive Assessment Date Thrive assessed 10/16/22 06/27/23 10:25 Const General: no acute distress and well developed Nutritional Appearance: well nourished Orientation/consciousness: patient oriented x3 HENMT Head: Yes normocephalic and Yes atraumatic Eyes General: appearance normal, both eyes and all related structures Pupils: Equal, round and reactive pupils present EOM: EOMs intact bilaterally Resp Effort & Inspection: normal respiratory effort Auscultation: clear to auscultation bilaterally Cardio Rate: regular rate Rhythm: regular rhythm Heart sounds: S1 normal heart sound present, S2 normal heart sound present, no gallops, no murmurs and no rubs Neuro Other: 4/5 LE weakness bilaterally General: patient oriented x3 and No gait normal Cranial nerves: Yes Equal, round and reactive pupils present Gait exam (Neuro): gait abnormal Psych Affect: normal affect Assessment and Plan Assessment & Plan (1) Depression with anxiety: Code(s): F41.8 - Other specified anxiety disorders Plan: Continue?citalopram?and?clonazepam Referred?to?the?nurse?navigator?to?help?connect?her?with?a?therapist?and?psychiatrist. (2) Difficulty concentrating: Code(s): R41.840 - Attention and concentration deficit Plan: Patient?states?that?she?has?a?history?of?ADHD.??I?do?see?that?she?has?been?prescribed?Adderall?in?the?past.??I?do?not?have?any?records?confirming?that?diagnosis. She?also?has?memory?issues?and?requests?referral?to?neuropsychiatry-referral?is?made. (3) Aspergers' syndrome: Code(s): F84.5 - Asperger's syndrome Plan: Stable (4) Back pain: Code(s): M54.9 - Dorsalgia, unspecified Plan: Patient?has?complaints?of?significant?back?pain.??She?does?have?a?history?of?spondylosis?and?has?had?a?vertebral?compression?fracture-traumatic?after?a?fall. May?need?additional?imaging. Start?physical?therapy May?need?pain?management (5) Lupus: Code(s): M32.9 - Systemic lupus erythematosus, unspecified Plan: Patient?notes?history?of?lupus.??Check?labs.??May?need?a?referral?to?a?new?[place] carpenter. (6) Chronic pansinusitis: Code(s): J32.4 - Chronic pansinusitis Plan: MRI?and?CT?scan?show?pansinusitis Referred?to?ENT (7) Difficulty walking: Code(s): R26.2 - Difficulty in walking, not elsewhere classified Plan: Lower?extremity?weakness?and?back?pain?resulting?in?difficulty?walking,?unsteady?gait?and?history?of?fall. Start?physical?therapy Continue?using?cane?and?patient?has?a?wheelchair?at?home. She?is?requesting?a?scooter. Will?follow-up?after?physical?therapy.??May?need?a?scooter (8) Unsteady gait: Code(s): R26.81 - Unsteadiness on feet Plan: As?above (9) Lower extremity weakness: Code(s): R29.898 - Other symptoms and signs involving the musculoskeletal system Plan: As?above (10) Fibromyalgia: Code(s): M79.7 - Fibromyalgia Plan: History?of?fibromyalgia.??Some?of?her?pain?is?likely?secondary?to?this. Will?continue?to?follow.??Will?encourage?exercise.??Already?referred?to?physical?therapy. (11) Laboratory exam ordered as part of routine general medical examination: Code(s): Z00.00 - Encounter for general adult medical examination without abnormal findings Plan: Check?labs Orders: Orders Comprehensive [place]. Panel Fast Today J32.4 - Chronic pansinusitis, Z00.00 - Encounter for general adult medical examination without abnormal findings Complete Blood Count Auto Diff Today J32.4 - Chronic pansinusitis, Z00.00 - Encounter for general adult medical examination without abnormal findings Lipid Panel Today J32.4 - Chronic pansinusitis, Z00.00 - Encounter for general adult medical examination without abnormal findings Microalbumin, Random (w Creat) Today I10 - Essential (primary) hypertension, J32.4 - Chronic pansinusitis Vitamin D 25-OH Total Today E55.9 - Vitamin D deficiency, unspecified, J32.4 - Chronic pansinusitis ELIAS Reflex Titer and Pattern Today M32.9 - Systemic lupus erythematosus, unspecified Erythrocyte Sedimentation Rate Today M32.9 - Systemic lupus erythematosus, unspecified Rheumatoid Factor Today M54.9 - Dorsalgia, unspecified Cyclic Citrullinated Peptide Today M54.9 - Dorsalgia, unspecified PT Evaluation and Treatment Today M54.9 - Dorsalgia, unspecified, R26.81 - Unsteadiness on feet, R29.898 - Other symptoms and signs involving the musculoskeletal system UA and rflx microscopic Today J32.4 - Chronic pansinusitis, Z00.00 - Encounter for general adult medical examination without abnormal findings TSH reflex Free T4 Today J32.4 - Chronic pansinusitis, Z00.00 - Encounter for general adult medical examination without abnormal findings Vitamin B12 and Folate Today E53.8 - Deficiency of other specified B group vitamins, J32.4 - Chronic pansinusitis CRP High Sensitivity Today M32.9 - Systemic lupus erythematosus, unspecified Referrals Dermatology Referral L68.0 - Hirsutism Nurse Navigator Referral F41.8 - Other specified anxiety disorders Ear/Nose/Throat Referral J32.4 - Chronic pansinusitis Neurology Referral G43.909 - Migraine, unspecified, not intractable, without status migrainosus Neuropsychiatry Referral R41.3 - Other amnesia, R41.840 - Attention and concentration deficit Coding Level of Care Code Est Pt Level 4 (24710) Diagnoses Depression with anxiety F41.8 Difficulty concentrating R41.840 Aspergers' syndrome F84.5 Back pain M54.9 Lupus M32.9 Chronic pansinusitis J32.4 Difficulty walking R26.2 Unsteady gait R26.81 Lower extremity weakness R29.898 Fibromyalgia M79.7 Laboratory exam ordered as part of routine general medical examination Z00.00
== END 2023-06-27 11:32 | disposition home or self-care (01) ==
PROVIDERS: PCP Family Medicine; Visit Provider Family Medicine
DX: M32.9 Systemic lupus erythematosus, unspecified (principal); F41.8 Other specified anxiety disorders; R41.840 Attention and concentration deficit; F84.5 Asperger's syndrome; M54.9 Dorsalgia, unspecified; J32.4 Chronic pansinusitis; R26.2 Difficulty in walking, not elsewhere classified; R26.81 Unsteadiness on feet; R29.898 Other symptoms and signs involving the musculoskeletal system; M79.7 Fibromyalgia
CPT/HCPCS: 99214

== ENCOUNTER 2023-07-03 10:42 | Outpatient (REF) | payer OTHER, SELFPAY ==
[2023-07-03 11:01] LABS: MANUAL DIFF FLAG NO
[2023-07-03 11:40] LABS: Basophils Percent Auto 0.6 % (0-2); Eosinophils Absolute Auto 0.4 X10*3/uL (0.0-0.4); Eosinophils Percent Auto 6.6 % (0-4); Hematocrit 38.6 % (37.0-47.0); Hemoglobin 13.2 g/dl (12.0-16.0); Imm Gran Abs Auto 0.02 X10*3/uL (0.00-0.03); Imm Gran Pct Auto 0.3 % (0.0-0.4); Lymphocytes Percent Auto 31.7 % (20-40); Mean Corpuscular HGB Conc 34.2 g/dl (31.0-35.0); Mean Corpuscular Volume 90.6 fL (80.0-98.0); Mean Platelet Volume 9.4 fL (9.4-12.3); Monocytes Absolute Auto 0.3 X10*3/uL (0.1-1.2); Monocytes Percent Auto 5.1 % (2-11); Neutrophils Absolute Auto 3.5 x10*3/uL (2.0-8.3); Neutrophils Percent Auto 55.7 % (45-73); Platelet Count 220 X10*3/uL (160-400); Red Blood Count 4.26 X10*6/uL (4.20-5.50); Red Cell Distribution Width 12.2 % (11.0-16.0); White Blood Count 6.2 X10*3/uL (4.8-10.8)
[2023-07-03 12:17] LABS: Erythrocyte Sedimentation Rate 14 MM/HR (0-20)
[2023-07-03 12:56] LABS: Appearance Urine Clear; Color Urine Yellow; Glucose Urine UA Negative (Negative); Leukocyte Esterase Urine Negative (Negative); Nitrite Urine Negative (Negative); PH 5.5 (5.0-9.0); Specific Gravity - Urine <= 1.005 (1.005-1.025); UMIC TRIGGER UA YES; Urine Blood Small (1+) (Negative); Urine Ketones Negative (Negative); Urine Protein Negative (Neg-Trace)
[2023-07-03 13:14] LABS: Bacteria Urine None Seen (None Seen); Hyaline Casts Urine 0-2 /LPF (0-2); RBC Urine 0-2 /HPF (0-2); WBC Urine 0-5 /HPF (0-5)
[2023-07-03 13:38] LABS: Alanine Aminotransferase 21 U/L (0-31); Albumin Level 4.3 g/dL (3.5-5.0); Alkaline Phosphatase 85 U/L (39-117); Anion Gap 12 (12-20); Aspartate Amino Transferase 28 U/L (5-31); Bilirubin Total 0.5 mg/dL (0.0-1.0); Blood Urea Nitrogen 14 mg/dL (9-16); Calcium 9.5 mg/dL (8.4-10.2); Carbon Dioxide 26 mmol/L (22-29); Chloride 109 mmol/L (96-108); Cholesterol 175 mg/dL (<200); Estimated Glomerular Filt Rate > 60; Glucose Fasting 82 mg/dL (60-99); HDL Cholesterol 59 mg/dL (>40); LDL Cholesterol Calculated 105 mg/dL (<100); Potassium 3.6 mmol/L (3.3-5.1); Sodium 143 mmol/L (135-145); Total Protein 7.6 g/dL (6.5-8.0); Triglycerides 58 mg/dL (<150)
[2023-07-03 13:49] LABS: Rheumatoid Factor 36.1 IU/mL (<15.0)
[2023-07-03 13:56] LABS: TSH reflex Free T4 1.36 uIU/mL (0.32-4.0); Vitamin D 25-OH Total 36.1 ng/mL (>30)
[2023-07-03 14:07] LABS: Folate 7.5 ng/mL (> or = 4.0); Vitamin B12 497 pg/mL (200-900)
[2023-07-03 14:17] LABS: Creatinine Urine 27.08 mg/dL; Microalbumin Urine < 5.0 mg/L
[2023-07-05 12:18] LABS: CRP High Sensitivity 1.2 mg/L
[2023-07-09 10:48] LABS: Cyclic Citrullinated Peptide <16 UNITS
[2023-07-12 12:09] LABS: Anti Nuclear Antibody Screen POSITIVE (NEGATIVE)
== END 2023-07-03 10:43 | disposition home or self-care (01) ==
LOC: HO.LAB 10:42
PROVIDERS: PCP Family Medicine; Visit Provider Family Medicine
DX: Z00.00 Encounter for general adult medical examination without abnormal findings (principal); J32.4 Chronic pansinusitis; E53.8 Deficiency of other specified B group vitamins; M54.9 Dorsalgia, unspecified; I10 Essential (primary) hypertension; E55.9 Vitamin D deficiency, unspecified; M32.9 Systemic lupus erythematosus, unspecified
CPT/HCPCS: 36415; 80053; 80061; 81001; 82043; 82306; 82570; 82607; 82746; 84443; 85025; 85652; 86038; 86039; 86141; 86200; 86431